=== PATIENT | male | born 1990 | race Caucasian/White ===

== ENCOUNTER 2017-03-19 13:17 | Emergency (ER) | payer MEDICAID ==
[~2017-03-19] VITALS: Ht 170.2 cm; Wt 74.1 kg
[2017-03-19] MEDS ORDERED: ONDANSETRON ODT 8 MG ONE (13:26)
[2017-03-19] MEDS ORDERED: ONDANSETRON ODT 4 MG PO ONE (13:30)
[2017-03-19 13:38] LABS: HEMATOCRIT 57.9 % (39.2-51.8); HEMOGLOBIN 19.2 g/dL (13.7-18.0); WHITE BLOOD COUNT 11.8 x10^3/uL (3.4-10)
[2017-03-19 13:51] LABS: BLOOD UREA NITROGEN 13 mg/dL (7-18)
[2017-03-19 13:55] LABS: ASPARTATE AMINO TRANSFERASE 41 U/L (15-37)
[2017-03-19] MEDS ORDERED: MORPHINE SULFATE 4 MG/ML, 1ML IVPush PRN (14:00)
[2017-03-19] MEDS ORDERED: SODIUM CHLORIDE FLUSH 10ML SYR IVF ONE (14:00)
[2017-03-19] MEDS ORDERED: SODIUM CHLORIDE 0.9% 1,000ML IVBOLUS ONE (14:00)
[2017-03-19] MEDS ORDERED: MORPHINE SULFATE 4 MG/ML, 1ML ONE (14:06)
[2017-03-19 14:36] LABS: PATH.CAST-FLAG NOT PRESENT; SPERM-FLAG NOT PRESENT; SRC-FLAG NOT PRESENT; XTAL-FLAG NOT PRESENT; YLC-FLAG NOT PRESENT
[2017-03-19 16:15] VITALS: BP 124/77
== END 2017-03-19 16:20 | disposition home or self-care (01) ==
LOC: ED 16:00
DX: R11.14 Bilious vomiting (principal); R11.2 Nausea with vomiting, unspecified; E86.0 Dehydration
CPT/HCPCS: 36415; 76700; 80053; 81001; 83690; 85025; 87086; 96361; 96374; 99285; J7030; Q0162